=== PATIENT | female | born 1955 ===

== ENCOUNTER → 2017-09-01 | Emergency (ER) | payer OTHER ==
[~2017-09-01] VITALS: Ht 152.4 cm; Wt 67.6 kg
[~2017-09-01] MED LIST: COZAAR100 MG; FORTAMET1000 MG; LIPITOR20 MG; SEROQUEL50 MG; SYNTHROID75 MCG; TOPROL XL50 M1
== END | disposition home or self-care (01) ==
LOC: ER 13:56
DX: I10 Essential (primary) hypertension (principal)